=== PATIENT | female | born 1980 | race Caucasian/White ===

== ENCOUNTER 2024-01-01 20:32 | Emergency (ER) | payer OTHER, SELFPAY ==
[2024-01-01 20:34] VITALS: BP 149/98; PULSE 75; RESP 18; TEMP 35.8; O2SAT 98; BMI 36.0
[2024-01-01] MEDS: Diphth,Pertuss(Acell),Tet Vac 0.5 ML Vial IM (22:22)
[2024-01-01] MEDS: Lidocaine 2% /Epi 1:100 (20ml) 20 ML VIAL INFILT (22:22)
--- NOTE | 2024-01-01 23:32 | EDS_ITS ---
HPI History of Present Illness Chief Complaint: Laceration Informant: patient and spouse/S.O. Narrative Narrative: Patient is a 43-year-old female who is right-hand dominant. She reports no significant past medical history. 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 She states she sustained a laceration to her left elbow. She is unsure of her tetanus status. She denies any numbness tingling or weakness but with concern the laceration may need sutures she presents for evaluation PFS PFS Allergy/AdvReac Type Severity Reaction Status Date / Time sulfamethoxazole (From AdvReac Intermediate Enlarged Verified 01/01/24 20:33 Bactrim) spleen trimethoprim (From Bactrim) AdvReac Intermediate Enlarged Verified 01/01/24 20:33 spleen amoxicillin (From Augmentin) AdvReac Mild Rash Verified 01/01/24 20:33 clavulanic acid (From AdvReac Mild Rash Verified 01/01/24 20:33 Augmentin) Surgical History (Updated 01/01/24 @ 21:36 by Adore Escalona) H/O: hysterectomy Social History Smoking Status: Never smoker [facility] ED Constitutional Constitutional ED: Denies chills or fever(s) ENT ENT ED: Denies sore throat Cardiovascular Cardiovascular: Denies chest pain Respiratory/Chest Respiratory/Chest: Denies cough or dyspnea Gastrointestinal Gastrointestinal: Denies abdominal pain, diarrhea, nausea or vomiting Genitourinary Genitourinary ED: Denies dysuria Musculoskeletal Musculoskeletal: Reports other Details: Positive left elbow pain Integumentary Reports other Details: Positive left elbow laceration Neurologic Neurologic: Denies headache(s), paresthesias or weakness Hematologic/Lymphatic Hematologic/Lymphatic: Denies easy bleeding or easy bruising EXAM Physical Exam Const Vital Signs: 01/01/24 20:34 01/01/24 23:51 Temperature 96.5 F L 97.8 F Temperature Source Temporal Pulse Rate 75 75 Respiratory Rate 18 18 Blood Pressure 149/98 H 130/70 H Blood Pressure Mean 115 90 Pulse Ox 98 98 Positive well nourished and well developed General Appearance ED: well developed HEENT HEENT Narrative: Normocephalic atraumatic Eyes PERRL and EOMs intact bilaterally Neck supple Resp normal respiratory effort and clear to auscultation bilaterally Cardio regular rate and regular rhythm Extremity Extremity Narrative: Left upper extremity is neurovascularly intact; AIN/PIN are intact and normal. Patient has a linear subcutaneous layer deep laceration along the posterior aspect of the left elbow that is 3 cm in length. Minimal ooze of blood is noted without foreign body. No ligamentous or tendon damage. No bony deformity or joint effusion. Remainder the exam is normal Neuro oriented x3, CN's II-XII intact bilaterally and no sensory deficits noted Sensorium / Orientation: alert Motor Exam: strength 5/5 throughout Psych mental status grossly normal Skin Skin Narrative: Laceration to the left elbow as documented above MDM MDM MDM Narrative Medical decision making narrative: Patient arrived to ER hypertensive but otherwise with stable vital. She sustained a simple laceration to her left elbow. By exam there is no retained foreign body and she has no signs of arterial injury ligamentous or tendon injury or bony injury and therefore do not feel there is need for imaging or emergent orthopedic consultation. As she is unsure of her tetanus status this was updated. However as the wound is relatively clean there is no need for prophylactic antibiotics. Patient of the wound sutured as document below and is otherwise safe for discharge Patient had her left elbow laceration cleaned with chlorhexidine. It was anesthetized using 5 mL of 2% lidocaine with epinephrine and local fashion. The wound was copiously irrigated with normal saline. Then nine 4-0 Ethilon sutures were placed in simple interrupted fashion. This brought the wound together with good approximation. Patient tolerated the procedure well without complication. History & Record Review Discussion w/independent historian: Patient Discharge Plan Triage Chief Complaint: Laceration ED Provider: Tu Nichols Dx/Rx/DC Orders Clinical Impression: Laceration of elbow, left, Hypertension Instructions: ED Laceration, All Closures Primary Care Provider: Cr Watson Referrals: Cr Watson MD [Primary Care Provider] - Activity Restrictions/Additional Instructions: Please see your family doctor return to the ER or follow-up with Workmen's Compensation in 7 to 10 days for suture removal Print Language: Amharic Disposition Disposition: Home, Self Care Discharge Date/Time: 01/01/24 23:53
[2024-01-01 23:51] VITALS: BP 130/70; PULSE 75; RESP 18; TEMP 36.6; O2SAT 98
== END 2024-01-01 23:53 | disposition home or self-care (01) ==
PROVIDERS: Emergency Provider Emergency Medicine; PCP Family Medicine; Visit Provider Emergency Medicine
DX: S51.012A Laceration without foreign body of left elbow, initial encounter (principal); I10 Essential (primary) hypertension; Y99.0 Civilian activity done for income or pay; Y92.812 Truck as the place of occurrence of the external cause
CPT/HCPCS: 12002; 90715; 99283

== ENCOUNTER → 2024-01-31 | Outpatient (CLI) | payer BC, SELFPAY ==
[2024-01-31 15:24] LABS: Basophil# 0.04 X10^3/uL; Basophil% 0.5 % (0-1); Eosinophil# 0.11 X10^3/uL; Eosinophils% 1.4 % (0-5); Hematocrit 41.5 % (37-47); Hemoglobin 13.6 g/dL (12.0-15.0); Mean Corp Hgb Conc 32.8 g/dL (32-36); Mean Corpuscular Hgb 28.7 pg (27.0-32.0); Mean Corpuscular Volume 87.6 fL (81-99); Mean Platelet Vol. 9.5 fl (6.2-12.0); Monocyte# 0.53 X10^3/uL; NRBC Flagged by Analyzer 0 % (0-5); Neutrophil % 65.8 % (47-70); Platelet Count 375 K/mm3 (150-450); RBC Distribution Width CV 13.2 % (11.6-14.6); RBC Distribution Width SD 42.2 fl (35.1-43.9); Red Blood Count 4.74 M/mm3 (4.2-5.4); White Blood Count 7.6 K/mm3 (4.4-11.0)
[2024-01-31 15:46] LABS: ALB/GLOB Ratio 1.1 RATIO (0.9-2.4); AST(SGOT) 33 U/L (15-37); Alanine Aminotransfer ALT/SGPT 59 U/L (13-56); Albumin, Serum 3.9 g/dL (3.2-5.0); Alkaline Phosphatase 97 U/L (45-117); Anion Gap 5 (5-15); BUN 15 mg/dL (7-18); BUN/Creat Ratio 18.4 RATIO (10-20); Calcium,Total 9.6 mg/dL (8.5-10.1); Chloride 105 mmol/L (98-107); Cholesterol 178 mg/dL (200); Creatinine, Serum 0.81 mg/dL (0.55-1.02); EST Glomerular Filtration Rate 81 mL/min (>60); Est Glom Filt Rate - Afr Amer 99 mL/min (>60); Follicle Stimulating Hormone 71.3 mIU/mL; Globulin 3.6 g/dL (2.2-4.2); Glucose 92 mg/dL (74-106); High Density Lipoprotein 41 mg/dL; Luteinizing Hormone 33.7 mIU/mL; Potassium 4.1 mmol/L (3.5-5.1); Protein, Total 7.5 g/dL (6.4-8.2); Sodium Level 139 mmol/L (136-145); Triglycerides 163 mg/dL; Very Low Density Lipoprotein 33 mg/dL (5-40)
[2024-02-02 07:07] LABS: PROGESTERONE 0.1 ng/mL (.)
[2024-02-05 20:08] LABS: Estrogen, Total, Serum 80 pg/mL (.)
== END | disposition home or self-care (01) ==
LOC: MTLAB 12:33
PROVIDERS: PCP Family Medicine; Referring Provider Family Medicine; Visit Provider Family Medicine
DX: E66.9 Obesity, unspecified (principal); N95.1 Menopausal and female climacteric states; Z13.220 Encounter for screening for lipoid disorders; Z13.1 Encounter for screening for diabetes mellitus
CPT/HCPCS: 36415; 80053; 80061; 82306; 82672; 83001; 83002; 84144; 84443; 85025

== ENCOUNTER → 2024-02-07 | Outpatient (CLI) | payer BC, SELFPAY ==
--- NOTE | 2024-02-07 08:00 | BI_ITS ---
MAMMOGRAPHY - BILATERAL SCREENING REASON FOR EXAM: Female, 43 years old. Routine annual screening examination. PERTINENT HISTORY: Mother with breast cancer. Remote left excisional breast biopsy. TECHNIQUE: Digital bilateral breast roque (3D mammographic acquisition) in the CC and MLO projections. 2-D mediolateral oblique (MLO) and craniocaudad (CC) views of both breasts were obtained. CAD: Full Field Digital Mammography with Computer Added Detection was performed. COMPARISON: No comparison mammograms available at this time. If any prior films become available, an addendum to this report can be generated. FINDINGS: Breast Composition: The breasts are heterogeneously dense, which may obscure small masses. There are no dominant masses or suspicious calcifications. Benign-appearing bilateral axillary lymph nodes. No other significant abnormalities are identified. BI/SCRN MAMM (CAD)W/ROQUE BILAT IMPRESSION: Negative screening mammogram. Yearly followup mammogram recommended. (A) ASSESSMENT CATEGORY: BIRADS Category 2: Benign. A letter regarding these results will be sent to the patient by the facility within 30 days. Approximately 10% of breast cancers are not detected by mammography. A normal mammogram should not delay biopsy of a clinically suspicious abnormality. [id number] Electronically Signed: Meng Olivares MD at 13:50 EDT ,
== END | disposition home or self-care (01) ==
LOC: OPBI 07:58
PROVIDERS: PCP Family Medicine; Referring Provider Family Medicine; Visit Provider Family Medicine
DX: Z12.31 Encounter for screening mammogram for malignant neoplasm of breast (principal)
CPT/HCPCS: 77063; 77067